=== PATIENT | male | born 1995 | race Caucasian/White ===

== ENCOUNTER 2020-09-16 16:02 | Emergency (ER) | payer MEDICAID ==
[~2020-09-16] VITALS: Ht 160 cm; Wt 68.5 kg
[2020-09-16 16:29] VITALS: BP 132/71
[2020-09-16] MEDS ORDERED: BACITRACIN OINT 500 UNITS/GM PKT TP ONE (16:40)
[2020-09-16] MEDS ORDERED: LIDOCAINE MPF 1% 10 MG/ML VIAL INJ ONE ×2 (16:40→17:00)
[2020-09-16 18:33] VITALS: BP 132/71
== END 2020-09-16 18:33 | disposition home or self-care (01) ==
LOC: MED 16:02
DX: S61.210A Laceration without foreign body of right index finger without damage to nail, initial encounter (principal); W26.8XXA Contact with other sharp object(s), not elsewhere classified, initial encounter; Y93.89 Activity, other specified; Y92.89 Other specified places as the place of occurrence of the external cause; Y99.8 Other external cause status
CPT/HCPCS: 12001; 73140; 90471; 90715; 99283; J2001

== ENCOUNTER 2020-09-19 10:27 | Emergency (ER) | payer MEDICAID ==
[~2020-09-19] VITALS: Ht 162.6 cm; Wt 68.9 kg
[2020-09-19 10:32] VITALS: BP 118/72
== END 2020-09-19 11:05 | disposition home or self-care (01) ==
LOC: MED 10:27
DX: S61.210D Laceration without foreign body of right index finger without damage to nail, subsequent encounter (principal); Z48.00 Encounter for change or removal of nonsurgical wound dressing; X58.XXXD Exposure to other specified factors, subsequent encounter
CPT/HCPCS: 99281

== ENCOUNTER 2020-09-25 11:10 | Emergency (ER) | payer MEDICAID ==
[~2020-09-25] VITALS: Ht 160 cm; Wt 68.0 kg
[2020-09-25 11:13] VITALS: BP 135/61
--- NOTE | 2020-09-25 11:25 | NUR ---
24 y/o male bib self for suture removal to right index finger. crushed finger x9 days. +2 radial pulses <3 seconds cap refill with full ROM. pt denies pain and numbness. Denies SOB/N/V PMH: DENIES NKA
--- NOTE | 2020-09-25 11:30 | NUR ---
dr hernandez at pt bedside
[2020-09-25 11:42] VITALS: BP 135/61
--- NOTE | 2020-09-25 11:42 | NUR ---
Patient discharged with v/s stable. Written and verbal after care instructions given and explained. Patient verbalized understanding. Ambulatory with steady gait. All questions addressed prior to discharge. Advised to follow up with PMD.
== END 2020-09-25 11:42 | disposition home or self-care (01) ==
LOC: MED 11:10
DX: S61.210D Laceration without foreign body of right index finger without damage to nail, subsequent encounter (principal); F17.210 Nicotine dependence, cigarettes, uncomplicated; X58.XXXD Exposure to other specified factors, subsequent encounter; Z48.00 Encounter for change or removal of nonsurgical wound dressing
CPT/HCPCS: 99281